=== PATIENT | male | born 1980 | race Caucasian/White ===

== ENCOUNTER 2020-08-05 14:46 | Outpatient (REF) | payer OTHER, MEDICAID, SELFPAY ==
[2020-08-05 13:57] LABS: HCT 41.4 % (40.0-50.0); HGB 13.8 g/dL (13.5-17.5); MCH 29.2 pg (27.0-33.0); MCHC 33.3 % (32.0-36.0); MCV 87.7 fL (80-95); MPV 9.6 fL (8.0-11.0); Platelet Count 311 10^3/uL (130-400); RBC 4.72 10^6/uL (4.36-5.78); RDW 13.8 % (11.8-14.1); RDW-SD 44.7 fL; WBC 5.89 10^3/uL (4.4-10.8)
[2020-08-05 14:41] LABS: ALT 82 U/L (16-63); AST 38 U/L (15-37); Albumin 3.7 g/dL (3.4-5.0); Alkaline Phosphatase 58 U/L (46-116); Anion Gap 8.6 mmol/L (3-11); BUN 12 mg/dL (7-18); Bilirubin, Total 0.2 mg/dL (0.2-1.0); CO2 25.4 mmol/L (21.0-32.0); CREATININE 0.8 mg/dL (0.70-1.30); Chloride 105 mmol/L (98-107); Glucose 97 mg/dL (74-106); Potassium 4.6 mmol/L (3.5-5.1); Sodium 139 mmol/L (136-145)
== END 2020-08-05 14:47 | disposition home or self-care (01) ==
LOC: NCHCN 14:46
PROVIDERS: PCP Nurse Practitioner Family; Visit Provider Internal Medicine
DX: R00.2 Palpitations (principal)
CPT/HCPCS: 80053; 85027

== ENCOUNTER 2020-08-10 19:05 | Outpatient (CLI) | payer OTHER, MEDICAID, SELFPAY ==
--- NOTE | 2020-08-21 08:56 | W.ZIOMONITOR ---
Date of service: 08/21/20 Time of Service: 08:56 14 Day Corset Fitter Referring Provider:: Leonid Indications:: Palps Note: This is a 14-day monitor order for indication of palpitations. ?The patient was in normal sinus rhythm for the majority of the recording with an average heart rate of 74 bpm (49-143 bpm) ?Patient had one episode of supraventricular tachycardia which lasted 8 beats. This was asymptomatic. ?Patient no episodes of ventricular tachycardia and no significant ectopy. ?There were no episodes of atrial fibrillation, no pauses greater than 3 seconds and no evidence of high degree heart block. ?The one patient triggered event was associated with normal sinus rhythm at a rate of 88 bpm
== END 2020-08-10 19:06 | disposition home or self-care (01) ==
LOC: RT 08-13 19:05
DX: R00.2 Palpitations (principal)
CPT/HCPCS: 93246

== ENCOUNTER 2020-08-21 08:56 | Outpatient (CLI) | payer OTHER, MEDICAID, SELFPAY | END 2020-08-21 08:57 | disposition home or self-care (01) | LOC: CARDO 08-31 16:42 | PROVIDERS: PCP Registered Nurse; Referring Provider Registered Nurse; Visit Provider Internal Medicine Cardiovascular Disease | DX: R00.2 Palpitations (principal); I47.1 Supraventricular tachycardia | CPT/HCPCS: 93248 ==

== ENCOUNTER 2020-12-03 03:07 | Outpatient (CLI) | payer MEDICARE, MEDICAID, SELFPAY ==
[2020-12-03] MEDS: Inhaler, Assist Device 1 EACH MC (11:39)
[2020-12-03] MEDS: Albuterol HFA 18 GM 200 PUFF INH IH (11:39)
== END 2020-12-03 03:08 | disposition home or self-care (01) ==
LOC: RT 03:09
PROVIDERS: Visit Provider Nurse Practitioner Family
DX: J45.20 Mild intermittent asthma, uncomplicated (principal)
CPT/HCPCS: 94060; 94726; 94729

== ENCOUNTER 2020-12-22 04:15 | Outpatient (CLI) | payer MEDICARE, MEDICAID, SELFPAY ==
[2020-12-22 08:04] LABS: HCT 43.2 % (40.0-50.0); HGB 14.4 g/dL (13.5-17.5); MCH 29.3 pg (27.0-33.0); MCHC 33.3 % (32.0-36.0); MPV 8.8 fL (8.0-11.0); Platelet Count 305 10^3/uL (130-400); RBC 4.91 10^6/uL (4.36-5.78); RDW 13.3 % (11.8-14.1); RDW-SD 42.7 fL; WBC 5.35 10^3/uL (4.4-10.8)
[2020-12-22 08:56] LABS: ALT 79 U/L (16-63); AST 39 U/L (15-37); Albumin 3.9 g/dL (3.4-5.0); Alkaline Phosphatase 61 U/L (46-116); Anion Gap 11.5 mmol/L (3-11); BUN 14 mg/dL (7-18); Bilirubin, Total 0.3 mg/dL (0.2-1.0); CO2 24.5 mmol/L (21.0-32.0); CREATININE 0.8 mg/dL (0.70-1.30); Calcium 8.9 mg/dL (8.5-10.1); Calculated LDL 101 mg/dL (<100); Chloride 105 mmol/L (98-107); Cholesterol 161 mg/dL (<200); Glucose 119 mg/dL (74-106); HDL Cholesterol 28 mg/dL (40-60); Potassium 4.4 mmol/L (3.5-5.1); Sodium 141 mmol/L (136-145); Total Protein 7.2 g/dL (6.4-8.2); Triglyceride 164 mg/dL (<150)
[2020-12-22 09:52] LABS: Lipase 93 U/L (73-393)
== END 2020-12-22 04:16 | disposition home or self-care (01) ==
LOC: LBO 04:16
DX: R10.11 Right upper quadrant pain (principal); R79.89 Other specified abnormal findings of blood chemistry
CPT/HCPCS: 36415; 80053; 80061; 83690; 85027

== ENCOUNTER 2020-12-31 02:50 | Outpatient (CLI) | payer MEDICARE, MEDICAID, SELFPAY ==
--- NOTE | 2020-12-31 07:15 | DI.US_ITS ---
Exam(s) US ABDOMEN EXAM: US ABDOMEN CLINICAL HISTORY: Episodic RUQ pain, nausea,fatty liver, k76.0,r10.11 TECHNIQUE: Ultrasound of complete upper abdomen performed using standard protocol. COMPARISON: US ABDOMEN ULTRASOUND (P) from 11/30/2011 FINDINGS: There is no ascites evident. LIVER: Liver appears hyperechoic indicating steatosis. There are no discrete focal hepatic lesions i dentified. GALLBLADDER/BILIARY: There are no gallstones. No gallbladder wall edema nor pericholecystic fluid. The common hepatic duct isnot dilated, measuring 3-4mm at the level of froilan hepatis. PANCREAS: There is no evidence of pancreatic mass nor dilatation of the pancreatic duct. SPLEEN: The spleen is not enlarged and there are no intrasplenic lesions evident. KIDNEYS:Kidneys exhibit normal size with no evidence of solid mass, calculus, nor hydronephrosis. No cortical cysts evident. ABDOMINAL AORTA: There is no evidence of abdominal aortic aneurysm. IVC: Normal diameter where visualized. IMPRESSION: 1. Hepatic steatosis. Correlation with appropriate hepatic blood work is recommended. 2. No other significant ultrasound findings in the upper abdomen. 3. There is no ascites. DATA REPOSITORY:
== END 2020-12-31 03:10 ==
DX: K76.0 Fatty (change of) liver, not elsewhere classified (principal)
CPT/HCPCS: 76700

== ENCOUNTER 2021-03-17 02:16 | Outpatient (CLI) | payer MEDICARE, MEDICAID, SELFPAY ==
--- NOTE | 2021-03-17 08:15 | DI.RAD_ITS ---
Exam(s) XR FOOT RT COMPLETE EXAM: XR FOOT RT COMPLETE CLINICAL HISTORY: evaluate for bony pathology,RT FOOT PAIN, CALCANEAL SPUR,PLANTAR FASCITIS,. TECHNIQUE: 2D digital imaging was performed. COMPARISON: No exams were available for comparison FINDINGS: There is no evidence of acute fracture or diastasis of the Lisfranc joint. Small bony exostosis is s een off the medial aspect of the base of the distal phalanx of the great toe. No ominous osseous lesions. Bone density normal. As inferior calcaneal spurs noted. IMPRESSION: DATA REPOSITORY: RADIATION DOSE DELIVERED:
== END 2021-03-17 02:36 ==
PROVIDERS: PCP Student in an Organized Health Care Education/Training Program; Visit Provider Student in an Organized Health Care Education/Training Program
DX: M72.2 Plantar fascial fibromatosis (principal); M77.31 Calcaneal spur, right foot; M79.671 Pain in right foot
CPT/HCPCS: 73630

== ENCOUNTER 2021-12-06 02:38 | Outpatient (CLI) | payer MEDICARE, MEDICAID, SELFPAY ==
[2021-12-06 09:50] LABS: ALT 69 U/L (16-63); AST 30 U/L (15-37); Albumin 3.9 g/dL (3.4-5.0); Alkaline Phosphatase 54 U/L (46-116); Anion Gap 9.7 mmol/L (3-11); BUN 15 mg/dL (7-18); Bilirubin, Total 0.2 mg/dL (0.2-1.0); CO2 25.3 mmol/L (21.0-32.0); Calcium 9.3 mg/dL (8.5-10.1); Chloride 101 mmol/L (98-107); Glucose 110 mg/dL (74-106); Potassium 4.5 mmol/L (3.5-5.1); Sodium 136 mmol/L (136-145); TSH (W/Ref FT4) 3.13 uIU/mL (0.36-3.74); Total Protein 7.7 g/dL (6.4-8.2)
[2021-12-06 23:29] LABS: Calculated LDL 93 mg/dL (<100); Cholesterol 157 mg/dL (<200); HDL Cholesterol 37 mg/dL (40-60); Triglyceride 139 mg/dL (<150)
== END 2021-12-06 02:39 | disposition home or self-care (01) ==
LOC: LBO 02:38
PROVIDERS: PCP Student in an Organized Health Care Education/Training Program; Visit Provider Student in an Organized Health Care Education/Training Program
DX: E05.90 Thyrotoxicosis, unspecified without thyrotoxic crisis or storm (principal); R63.8 Other symptoms and signs concerning food and fluid intake; E78.5 Hyperlipidemia, unspecified; K76.0 Fatty (change of) liver, not elsewhere classified; R73.03 Prediabetes; R74.8 Abnormal levels of other serum enzymes; Z87.898 Personal history of other specified conditions
CPT/HCPCS: 36415; 80053; 80061; 84443

== ENCOUNTER 2022-05-31 11:03 | Outpatient (REF) | payer MEDICARE, MEDICAID, SELFPAY | END 2022-05-31 11:04 | disposition home or self-care (01) | LOC: LBN 11:03 | PROVIDERS: PCP Student in an Organized Health Care Education/Training Program; Visit Provider Student in an Organized Health Care Education/Training Program | DX: M54.9 Dorsalgia, unspecified (principal) | CPT/HCPCS: 87086 ==

== ENCOUNTER 2022-07-25 03:33 | Outpatient (CLI) | payer MEDICARE, MEDICAID, SELFPAY ==
[2022-07-25] MEDS: Albuterol HFA 18 GM 200 PUFF INH IH (08:36)
[2022-07-25] MEDS: Inhaler, Assist Device 1 EACH MC (08:37)
--- NOTE | 2022-07-25 14:24 | W.PFT ---
Date of service: 07/25/22 Time of Service: 08:00 Pulmonary Function Test Result Requesting Provider Chandrika Perez Indications: Dyspnea on exertion Interpretation Spirometry: There is no airflow limitation. The FVC is low. There is no significant bronchodilator response. Impression Restrictive appearing spirometry. This may be due to pseudo-restriction due to an elevated BMI, however restrictive lung disease cannot be ruled out. Recommend full PFT's with lung volumes for further assessment if clinically appropriate. Clinical Correlation therefore is recommended.
== END 2022-07-25 03:34 | disposition home or self-care (01) ==
LOC: RT 03:33
PROVIDERS: PCP Student in an Organized Health Care Education/Training Program; Visit Provider Student in an Organized Health Care Education/Training Program
DX: R94.2 Abnormal results of pulmonary function studies (principal); J45.909 Unspecified asthma, uncomplicated; R06.09 Other forms of dyspnea; Z87.891 Personal history of nicotine dependence
CPT/HCPCS: 94060

== ENCOUNTER 2022-09-22 03:53 | Outpatient (CLI) | payer MEDICARE, MEDICAID, SELFPAY ==
--- NOTE | 2022-09-26 13:08 | W.PFT ---
Date of service: 09/22/22 Time of Service: 20:16 Pulmonary Function Test Result Indications: Morning headaches Note: Overnight Oximetry Amount of time analyzed: 6 hours, 8 minutes, room air Number of minutes under 88%: 1.6 min REBEKAH: 1.6 Appearance of oxygen saturation pattern: Normal appearance Recommendation: No supplementary nocturnal oxygen required. Low probability for obstructive sleep apnea Bernarda Junior MD Pulmonary & Critical Care Medicine Clinical Correlation therefore is recommended.
== END 2022-09-22 03:54 | disposition home or self-care (01) ==
LOC: RT 03:53
PROVIDERS: PCP Student in an Organized Health Care Education/Training Program; Visit Provider Student in an Organized Health Care Education/Training Program
DX: R51.9 Headache, unspecified (principal)
CPT/HCPCS: 94762

== ENCOUNTER 2022-11-17 22:36 | Emergency (ER) | payer MEDICARE, MEDICAID, SELFPAY ==
--- NOTE | 2022-11-17 22:30 | RT.EKG_ITS ---
APPROVED REPORT Exam: Resting ECG Reason for Exam: sob Patient Location: E HR:81 bpm ECG Measurements Heart Rate 81 AXIS NV 170 P 32 QRSd 87 QRS 70 QT 356 T 25 QTc 413 Conclusion Sinus rhythm...normal P axis, V-rate 60- 99
[2022-11-17 22:40] VITALS: BP 152/82; PULSE 82; RESP 18; TEMP 36.7; O2SAT 95
--- NOTE | 2022-11-17 22:45 | DI.RAD_ITS ---
Exam(s) XR PORTABLE CHEST AP EXAM: XR PORTABLE CHEST AP CLINICAL HISTORY: shortness of breath TECHNIQUE: 2D digital imaging was performed. COMPARISON: No exams were available for comparison FINDINGS: LUNGS: The exam is somewhat limited due to under penetration at the lung bases. Lungs are suboptimal ly inflated. There is a question increased densities at the left lung base. No pleural abnormality seen. HEART: Normal size. AORTA: Normal diameter. BONES: Unremarkable for age. Soft tissues: Unremarkable. IMPRESSION: Limited exam. Question of increased densities at the left lung base which could represent pneumonia. Clinical correlation recommended. DATA REPOSITORY: RADIATION DOSE DELIVERED:
--- NOTE | 2022-11-17 22:53 | ED.GENADUL_ITS ---
Discharge Plan Disposition Patient Disposition: Home Condition: Stable Discharge Details Clinical Impression: Shortness of breath, Cough, Asthma exacerbation Primary Care Provider: Chandrika Perez ED Provider: Jake Ricardo [place] Meds and New Rx's Prescriptions: New prednisone 20 mg tablet 60 mg PO DAILY 4 Days Qty: 12 0RF levofloxacin 750 mg tablet 750 mg PO DAILY Qty: 5 0RF albuterol sulfate 2.5 mg /3 mL (0.083 %) solution for nebulization 2.5 mg inhalation Q4H PRNQty: 90 0RF Continued propranolol 40 mg tablet 60 mg PO BID Rx Instructions: Increased from 40mg BID from [facility] provider budesonide-formoterol [Symbicort] 160-4.5 mcg/actuation HFA aerosol inhaler 2 puff inhalation BID Qty: 10.2 12RF rizatriptan [Maxalt-PATTERN REPAIR PERSON] 10 mg tablet,disintegrating See Rx Instructions PO .COMPLEX MDD 3 tabs Qty: 20 1RF Rx Instructions: Trial for MIGRAINE: take 1 tab at onset of GIVENS; may repeat 1 tab after 2 hrs risperidone [Risperdal] 3 mg tablet 3 mg PO DAILY cholecalciferol (vitamin D3) 25 mcg (1,000 unit) capsule 25 mcg PO DAILY multivitamin [Daily Vitamin Formula] Tablet 1 tab PO DAILY B-complex with vitamin C Tablet 1 tab PO DAILY buspirone 30 mg tablet 30 mg PO BID metformin 500 mg tablet 500 mg PO DAILY Qty: 30 11RF (DME) Aerochamber MV Spacer See Rx Instructions .ROUTE .MEDSUPPLY Qty: 1 0RF Rx Instructions: As directed guaifenesin 1,200 mg tablet extended release 12hr 1,200 mg PO BID Qty: 20 1RF albuterol sulfate [ProAir HFA] 90 mcg/actuation HFA aerosol inhaler 2 puff inhalation Q6H PRN (Reason: shortness of breath or wheezing) Qty: 8.5 1RF Rx Instructions: Substitutions or generic OK; dispense as best filled per insurance... simvastatin 20 mg tablet 20 mg PO QHS Qty: 90 3RF fluticasone propionate 50 mcg/actuation spray,suspension 2 spray intranasal DAILY PRN (Reason: nasal congestion) Qty: 16 0RF Rx Instructions: administer into each nostril melatonin 5 mg capsule 5 mg PO QHS MDD 15 Qty: 90 5RF Rx Instructions: take with 10mg for 15mg, 1 hour before bed melatonin 10 mg capsule 10 mg PO HS MDD 15 mg PRN (Reason: sleep) Qty: 90 5RF pantoprazole 40 mg tablet,delayed release (DR/EC) 40 mg PO DAILY Qty: 90 3RF triamcinolone acetonide 0.5 % cream 1 applic topical .BID-QID Qty: 15 0RF Rx Instructions: Apply thin film to affected area(s) two-four times daily until resolution loratadine 10 mg capsule 10 mg PO DAILY PRN (Reason: allergy symptoms) Qty: 30 11RF Hold Instructions: trial zyrtec sucralfate 1 gram tablet 1 g PO BID Qty: 180 1RF Discharge Instructions Instructions: Asthma (ED) Additional Instructions: Your blood work did not show concerning findings, your xray showed a possible early pneumonia follow up as scheduled with your primary care provider if you feel more ill, have worsening trouble breathing or severe pain return to the emergency department Medical Decision Making 42 yo male with hx of asthma, gerd, headaches, fatty liver, who comes in with complaints of shortness of breath and cough for 3 days. He also notes when he coughs he does have anterior chest pain. He denies fevers, no abdominal pain, no recent travel. He is ambulatory with no visible signs of respiratory distress. He has stable vitals, apical wheezing bilaterally otherwise clear lungs, no jvd, no leg swelling or calf tenderness. Suspect asthma and possibly anxiety as a cause for his symptoms, but will proceed to evaluate for nstemi, anemia, pneumonia with ekg/troponin, cbc, and portable chest xray and also obtain covid. Will also send d dimer to screen for PE, he is wells low for PE labs unremarkable, xray shows possible left lower lobe infiltrate. He feels much better and has no wheezing now, stable vitals, no hypoxia. He is stable for d/c, will start on levofloxacin, he has f/u tomorrow with his pcp already. Return precautions given Differential Diagnosis Differential Diagnosis: asthma, anemia, pe, nstemi Medical Records Medical records reviewed: Yes I reviewed the patient's medical records. Imaging Data Radiologic Study: Attestation: I personally reviewed and interpreted this imaging study as follows: Imaging: X-Ray Radiologist's impression: IMPRESSION: Patchy infiltrate left lower lobe of the lung may represent early pneumonia. There is diffuse mild nonspecific prominence of the pulmonary interstitium. ECG Data Attestation: I personally reviewed and interpreted this ECG (s) as follows: Prior ECG tracings: not available for review Interpretation: sinus, rate of 81, pr 170, no acute ischemic findings HPI General Mode of arrival: ambulatory . Date/Time Provider Initiated Documentation: 11/17/22 22:37 . Limitations to Documentation: no limitations . Information obtained by: patient . History of Present Illness 42 year old M presents to the emergency department with the chief complaint of shortness of breath, described as moderate, Patient started experiencing this day(s) (3) and it has been constant. Rest improves symptom(s), Movement worsens symptoms . Patient notes cough. Related Data Home Medications Medication Instructions Recorded Confirmed B-complex with vitamin C 1 tab PO DAILY 10/05/20 09/29/22 buspirone 30 mg tablet 30 mg PO BID 10/05/20 09/29/22 cholecalciferol (vitamin D3) 25 25 mcg PO DAILY 10/05/20 09/29/22 mcg (1,000 unit) capsule multivitamin (Daily Vitamin 1 tab PO DAILY 10/05/20 09/29/22 Formula tablet) risperidone 3 mg tablet (Risperdal) 3 mg PO DAILY 10/05/20 09/29/22 propranolol 40 mg tablet 60 mg PO BID 07/16/21 09/29/22 metformin 500 mg tablet 500 mg PO DAILY #30 tabs 12/15/21 09/29/22 albuterol sulfate 90 mcg/actuation 2 puff inhalation Q6H PRN 03/07/22 09/29/22 aerosol inhaler (ProAir HFA) shortness of breath or wheezing #8.5 grams guaifenesin 1,200 mg tablet, 1,200 mg PO BID #20 tabs 03/07/22 09/29/22 extended release 12 hr simvastatin 20 mg tablet 20 mg PO QHS #90 tabs 04/20/22 09/29/22 fluticasone propionate 50 2 spray intranasal DAILY PRN nasal 05/11/22 09/29/22 mcg/actuation nasal congestion #16 grams spray,suspension inhalational spacing device #1 ea 05/19/22 09/29/22 (Aerochamber MV spacer) melatonin 10 mg capsule 10 mg PO HS PRN sleep #90 caps 05/21/22 09/29/22 melatonin 5 mg capsule 5 mg PO QHS #90 caps 05/21/22 09/29/22 rizatriptan 10 mg disintegrating See Rx Instructions PO .COMPLEX 08/12/22 09/29/22 tablet (Maxalt-PATTERN REPAIR PERSON) #20 tabs budesonide-formoterol HFA 160 2 puff inhalation BID #10.2 grams 08/23/22 09/29/22 mcg-4.5 mcg/actuation aerosol inhaler (Symbicort) pantoprazole 40 mg tablet,delayed 40 mg PO DAILY #90 tabs 10/07/22 release triamcinolone acetonide 0.5 % 1 applic topical .BID-QID #15 grams 10/12/22 topical cream loratadine 10 mg capsule 10 mg PO DAILY PRN allergy 11/03/22 symptoms #30 caps sucralfate 1 gram tablet 1 g PO BID #180 tabs 11/03/22 albuterol sulfate 2.5 mg/3 mL 2.5 mg (3 mL) inhalation Q4H PRN 11/18/22 (0.083 %) solution for nebulization #90 mL levofloxacin 750 mg tablet 750 mg PO DAILY #5 tabs 11/18/22 prednisone 20 mg tablet 60 mg PO DAILY 4 days #12 tabs 11/18/22 Previous Rx's Medication Instructions Recorded metformin 500 mg tablet 500 mg PO DAILY #30 tabs 12/15/21 albuterol sulfate 90 mcg/actuation 2 puff inhalation Q6H PRN 03/07/22 aerosol inhaler (ProAir HFA) shortness of breath or wheezing #8.5 grams guaifenesin 1,200 mg tablet, 1,200 mg PO BID #20 tabs 03/07/22 extended release 12 hr simvastatin 20 mg tablet 20 mg PO QHS #90 tabs 04/20/22 fluticasone propionate 50 2 spray intranasal DAILY PRN nasal 05/11/22 mcg/actuation nasal congestion #16 grams spray,suspension inhalational spacing device #1 ea 05/19/22 (Aerochamber MV spacer) melatonin 10 mg capsule 10 mg PO HS PRN sleep #90 caps 05/21/22 melatonin 5 mg capsule 5 mg PO QHS #90 caps 05/21/22 rizatriptan 10 mg disintegrating See Rx Instructions PO .COMPLEX 08/12/22 tablet (Maxalt-PATTERN REPAIR PERSON) #20 tabs budesonide-formoterol HFA 160 2 puff inhalation BID #10.2 grams 08/23/22 mcg-4.5 mcg/actuation aerosol inhaler (Symbicort) pantoprazole 40 mg tablet,delayed 40 mg PO DAILY #90 tabs 10/07/22 release triamcinolone acetonide 0.5 % 1 applic topical .BID-QID #15 grams 10/12/22 topical cream loratadine 10 mg capsule 10 mg PO DAILY PRN allergy 11/03/22 symptoms #30 caps sucralfate 1 gram tablet 1 g PO BID #180 tabs 11/03/22 albuterol sulfate 2.5 mg/3 mL 2.5 mg (3 mL) inhalation Q4H PRN 11/18/22 (0.083 %) solution for nebulization #90 mL levofloxacin 750 mg tablet 750 mg PO DAILY #5 tabs 11/18/22 prednisone 20 mg tablet 60 mg PO DAILY 4 days #12 tabs 11/18/22 Allergies Allergy/AdvReac Type Severity Reaction Status Date / Time venlafaxine [From Effexor] Allergy Severe Verified 09/29/22 15:35 penicillin V Allergy Intermediate Verified 09/29/22 15:35 aripiprazole Allergy Mild Verified 09/29/22 15:35 spinach Allergy Unknown Skin Rash Verified 09/29/22 15:35 aspirin AdvReac Intermediate Verified 09/29/22 15:35 pollen Allergy Mild Uncoded 09/29/22 15:35 dust Allergy Unknown Uncoded 09/29/22 15:35 General Stated Complaint: RespSymp MANDY: 3 Review of Systems All systems reviewed & are unremarkable except as noted in HPI and below Constitutional Constitutional: Denies chills, Denies fever(s) and Denies weakness Cardiovascular Cardiovascular: Reports chest pain and Reports dyspnea Respiratory Respiratory: Reports cough and Reports dyspnea Gastrointestinal Gastrointestinal: Denies abdominal pain, Denies nausea and Denies vomiting Musculoskeletal Musculoskeletal: Denies joint swelling Integumentary/Breasts Skin/Breast: Denies rash Neurologic Neurologic: Denies weakness PFSH All Active Problems (Updated 11/18/22 @ 00:05 by Jake Ricardo MD) Shortness of breath (Acute) Cough (Acute) Asthma exacerbation (Acute) Pain, foot (Acute) Ingrowing nail (Acute) Nail dystrophy (Acute) Asthma (Chronic) Uncontrolled morning headache (Acute) BPH associated with nocturia (Acute) POSSIBLE Dx for nocturia (gradual, new onset .. or hourly urination) Persistent headaches (Acute) Morning GIVENS, Probably Migraine 2' needing dark room .. Dysphagia (Acute) PER [facility] [place] ENDOSCOPY DESPITE PPI Tinea pedis, right (Acute) Athlete's foot with poor response to ketoconazole (other Rx denied by insurance). Terb trial [ ] . Plantar fasciitis of right foot (Acute) Prediabetes (Chronic) Transferred to [facility] with improved BG, Weight .. Good A1C 5.9, Jan 2021. Dx Spring 2020: Meds started; no coaching.. (caregiver, Shubham, helped with major diet/lifestyle changes). Gastroesophageal reflux disease (Chronic) evaluated 08/04/21 [facility] [place] History of esophageal dilatation (Acute) Increased body mass index (BMI) (Acute) planned weight loss .. Impaired vision in both eyes (Acute) Altered growth and development (Acute) Impulse control disorder (Acute) Obstructive sleep apnea (Chronic) Excessive daytime sleepiness (Acute) Non-restorative sleep (Acute) Restless sleeper (Acute) Allergic rhinitis (Chronic) Loratidine daily, Benadryl PRN. d/t other allergen Clotting disorder (Acute) Arthritis (Acute) Hyperlipidemia (Acute) Fatty liver (Acute) Nonalcoholic steatohepatitis (Acute) History of liver biopsy (Acute ~11/05/07) Elevated liver enzymes (Acute) Acanthosis nigricans (Acute) Bowel incontinence (Acute) Hyperthyroidism (Chronic) Slurred speech (Acute) Medical History ADHD, hyperactive-impulsive type Advanced directives, counseling/discussion Asthma, mild intermittent Susu rash of groin Resolved, 04/2021. Zinc or Nysatin PRN. Eczema History of palpitations per chart Hx, 08/2020 Oppositional defiant disorder Right foot pain Resolved. Saw podiatry, using inserts and has new workboots. Hx mid-foot pain .. @ distal calcaneous Smoker Quit, Summer 2020 Swelling of right knee joint Trochanteric bursitis, left hip Surgical History H/O endoscopy 11/18 21 AT [facility] [place] DYSPHAGIA DESPITE PPI Family History Mother Hypertension Anxiety Asthma Depression Maternal Grandfather Diabetes Maternal Aunt Diabetes Social History Smoking/Tobacco Use Status: Former Tobacco Use tobacco type: cigarettes, pipe, cigars, e-cigarettes and smokeless tobacco Quit Date: 07/20/19 Pack-years: 80 Tobacco: How many years used: 20 Second Hand Exposure: No Smoking risk assessment performed?: Yes Alcohol Intake: current Alcohol Intake frequency: a few times a month Alcohol type: beer and hard liquor Drug use: Never Substance use type: does not use Counseling given: No Counseling provided: none Adopted: No Caregiver/Support person: Yes Foster care: No Household members: caregiver Housing: house Number of Children: 0 number of grandchildren: 0 Communication Needs: None Education Level: high school Do you need help understanding health information?: Always current occupation: [employer] Pets and animals: Yes (3 Cats, 2 Dogs) Pets and animals: cat(s) and dog(s) Sexually active: No Do you think of yourself as: straight/heterosexual Current gender identity: male What is your relationship status?: never How often do you talk on the phone with friends or family?: three or more times per week How often do you get together with friends or relatives?: three or more times per week How often do you attend nondenominational or hoahaoism services?: 4 or more times per year Do you belong to any clubs or organized social groups?: no Panel score (0-1 are the most socially isolated patients): 2 What type of physical activity do you participate in: walking Duration: > 90 minutes/day Frequency: daily Layla/Orthodox: Scientologist Special layla needs: No Seatbelt use: always Helmet use: Yes Helmet use: always Drive intox or ride w/intox drive away driver: No Do you feel safe at home: Yes Do you feel safe in your relationship?: Yes Exam Const General: no acute distress Orientation: alert HENMT Head: normal to inspection Ears: external ears normal General nose exam: external nose normal Mouth: moist mucous membranes Eyes General: appearance normal, both eyes and all related structures Neck Neck: normal visual inspection Chest Chest: normal inspection of the chest Resp Effort & Inspection: normal respiratory effort and able to speak in complete sentences Auscultation: other (apical wheezing bilaterally) Cardio Jugular venous pressure: no JVD Rate: regular rate Heart Sounds: no murmurs GI Palpation: soft and nontender Skin General skin exam: no rashes or lesions noted Neuro General: patient alert and patient oriented x3 Extrem General: normal to inspection Psych Mental Status: mental status grossly normal Course Vital Signs Vital signs: Vital Signs Temperature 36.7 C 11/17/22 22:40 Pulse 82 11/17/22 22:40 Respiratory Rate 18 11/17/22 22:40 Blood Pressure 152/82 H 11/17/22 22:40 Pulse Oximetry 95 11/17/22 22:40 Temperature 36.7 C 11/17/22 22:40 Temperature Source Oral 11/17/22 22:40 Pulse 82 11/17/22 22:40 Respiratory Rate 18 11/17/22 22:40 Respiratory Effort Normal, Non-Labored 11/17/22 22:45 Blood Pressure 152/82 H 11/17/22 22:40 Blood Pressure Position Sitting 11/17/22 22:40 Pulse Oximetry 95 11/17/22 22:40 Oxygen Delivery Method Room Air 11/17/22 22:40 Oxygen Flow Rate 0 11/17/22 22:40 Pain Level 5 11/17/22 22:40
[2022-11-17 23:02] LABS: Source Nasal/Nares
[2022-11-17 23:13] LABS: Abs Immature Grans 0.01 10^3/uL (0.0-0.06); Absolute Basophil Count 0.05 10^3/uL (0.0-0.2); Absolute Eosinophil Count 0.35 10^3/uL (0.0-0.7); Absolute Lymphocyte Count 2.31 10^3/uL (1.2-3.4); Absolute Monocyte Count 0.95 10^3/uL (0.1-0.8); Absolute Neutrophil Count 3.99 10^3/uL (1.2-6.7); BE (Venous) 3 mmol/L (-2-3); Basophils % 0.7; Eosinophils % 4.6; HCO3 (Venous) 28 mmol/L (23-28); HGB 15.3 g/dL (13.5-17.5); Immature Grans % 0.1; Lymphocytes % 30.2; MCH 31.7 pg (27.0-33.0); MCHC 34.8 % (32.0-36.0); MCV 91 fL (80-95); MPV 8.4 fL (8.0-11.0); Monocytes % 12.4; O2 Sat (Venous) 76 %; Platelet Count 271 10^3/uL (130-400); RBC 4.82 10^6/uL (4.36-5.78); RDW 11.9 % (11.8-14.1); RDW-SD 40.2 fL; TCO2 (Venous) 24 mmol/L (24-29); WBC 7.66 10^3/uL (4.4-10.8); pCO2 (Venous) 43 mmHg (41-51); pH (Venous) 7.41 (7.31-7.41); pO2 (Venous) 39 mmHg
[2022-11-17 23:19] VITALS: PULSE 77; RESP 16; RESP 4; O2SAT 98
[2022-11-17] MEDS: Albuterol/Ipratropium 3 ML UPD VIAL UPD (23:19)
[2022-11-17] MEDS: methylPREDNISolone SUCC 125 MG VIAL IVP (23:21)
--- NOTE | 2022-11-17 23:24 | DI.VRAD_ITS ---
PROCEDURE INFORMATION: Exam: XR Chest Exam date and time: 11/17/2022 11:13 PM Age: 42 years old Clinical indication: Shortness of breath; Additional info: SOB TECHNIQUE: Imaging protocol: Radiologic exam of the chest. Views: 1 view. COMPARISON: No relevant prior studies available. FINDINGS: Lungs: Patchy infiltrate left lower lobe of the lung may represent early pneumonia. There is diffuse mild nonspecific prominence of the pulmonary interstitium. Pleural spaces: There is no evidence of pneumothorax. There are no pleural effusions present. Heart/Mediastinum: There is moderate cardiomegaly. Bones/joints: The skeletal structures and soft tissues show no evidence of fracture or other acute processes. Soft tissues: The soft tissues of the extrathoracic region are unremarkable. IMPRESSION: Patchy infiltrate left lower lobe of the lung may represent early pneumonia. There is diffuse mild nonspecific prominence of the pulmonary interstitium. Dictated and Authenticated by: Omari Silva MD. Ordering:KOSTA Joseph MD
[2022-11-17 23:44] LABS: D-Dimer 326 ng/mlFEU (<500)
[2022-11-17 23:45] LABS: COVID-19 PCR Negative (Negative)
[2022-11-17 23:49] LABS: ALT 66 U/L (16-63); AST 39 U/L (15-37); Albumin 3.9 g/dL (3.4-5.0); Alkaline Phosphatase 55 U/L (46-116); Anion Gap 7.8 mmol/L (3-11); BUN 14 mg/dL (7-18); Bilirubin, Total 0.4 mg/dL (0.2-1.0); CO2 28.2 mmol/L (21.0-32.0); CREATININE 1.1 mg/dL (0.70-1.30); Chloride 102 mmol/L (98-107); Estimated GFR 87.03 (mL/min/1.73m2); Glucose 120 mg/dL (74-106); Magnesium 1.9 mg/dL (1.8-2.4); NT-proBNP 34 pg/mL (<300); Potassium 3.9 mmol/L (3.5-5.1); Sodium 138 mmol/L (136-145); Total Protein 7.7 g/dL (6.4-8.2); Troponin I < 50 ng/L (<or=60)
[2022-11-18] MEDS: levoFLOXacin 500 MG, levoFLOXacin 250 MG 750 MG PO (00:12)
[2022-11-18 00:25] VITALS: BP 110/65; PULSE 79; RESP 22; O2SAT 94
== END 2022-11-18 00:22 | disposition home or self-care (01) ==
PROVIDERS: Emergency Provider Emergency Medicine; PCP Student in an Organized Health Care Education/Training Program
DX: R06.02 Shortness of breath (principal); R05.9 Cough, unspecified; J45.901 Unspecified asthma with (acute) exacerbation; Z87.891 Personal history of nicotine dependence
CPT/HCPCS: 80053; 82805; 87635; 93005; 94640; 96374; 99284; 71045; 83735; 83880; 84484; 85025; 85379; 93010; J2930; J7620

== ENCOUNTER → 2023-03-20 08:45 | Outpatient (BNVA) | payer MEDICARE, MEDICAID, SELFPAY | PROVIDERS: PCP Student in an Organized Health Care Education/Training Program; Referring Provider Student in an Organized Health Care Education/Training Program; Visit Provider Physician Assistant Surgical | DX: J45.909 Unspecified asthma, uncomplicated (principal) | CPT/HCPCS: 99214 ==

== ENCOUNTER 2023-11-01 08:07 | Outpatient (REF) | payer MEDICARE, MEDICAID, SELFPAY ==
[2023-11-01 14:49] LABS: HCT 46.3 % (40.0-50.0); MCH 31.9 pg (27.0-33.0); MCHC 34.6 % (32.0-36.0); MCV 92 fL (80-95); MPV 9.7 fL (8.0-11.0); Platelet Count 284 10^3/uL (130-400); RBC 5.01 10^6/uL (4.36-5.78); RDW 11.6 % (11.8-14.1); RDW-SD 39.4 fL; WBC 5.79 10^3/uL (4.4-10.8)
[2023-11-01 15:27] LABS: ALT 65 U/L (16-63); AST 29 U/L (15-37); Albumin 4.1 g/dL (3.4-5.0); Alkaline Phosphatase 52 U/L (46-116); Anion Gap 11.1 mmol/L (3-11); BUN 10 mg/dL (7-18); Bilirubin, Total 0.3 mg/dL (0.2-1.0); CO2 24.9 mmol/L (21.0-32.0); CREATININE 0.9 mg/dL (0.70-1.30); Calcium 8.8 mg/dL (8.5-10.1); Calculated LDL 69 mg/dL (<100); Chloride 106 mmol/L (98-107); Cholesterol 140 mg/dL (<200); Estimated GFR 110.04 (mL/min/1.73m2); Glucose 120 mg/dL (74-106); HDL Cholesterol 36 mg/dL (40-60); Potassium 4.2 mmol/L (3.5-5.1); Sodium 142 mmol/L (136-145); TSH 1.82 uIU/Ml (0.36-3.74); Total Protein 7.3 g/dL (6.4-8.2); Triglyceride 177 mg/dL (<150)
[2023-11-01 15:29] LABS: Hemoglobin A1C 5.8 % (<5.7)
[2023-11-01 15:49] LABS: FREE T4 0.86 ng/dL (0.76-1.46)
== END 2023-11-01 08:08 | disposition home or self-care (01) ==
LOC: NCHCN 08:07
PROVIDERS: Visit Provider Family Medicine
DX: E78.5 Hyperlipidemia, unspecified (principal); R73.03 Prediabetes
CPT/HCPCS: 80053; 80061; 85027; 83036; 84439; 84443